=== PATIENT | female | born 1990 | race Caucasian/White ===

== ENCOUNTER 2020-12-20 12:58 | Emergency (ER) | payer OTHER ==
[~2020-12-20] VITALS: Ht 160 cm; Wt 75.0 kg
[2020-12-20] MEDS ORDERED: ondansetron 4mg rapidly disintigrating tab PO ONE (13:55)
[2020-12-20] MEDS ORDERED: ketorolac tromethamine 15mg/ml inj. IM ONE ×2 (13:55→14:41)
[2020-12-20 14:29] LABS: CLARITY,URINE CLOUDY (Clear); COLOR,URINE YELLOW (Yellow); GLUCOSE, URINE NEGATIVE (Neg); KETONES,URINE NEGATIVE (Neg); NITRITES, URINE POSITIVE (Neg); OCCULT BLOOD,URINE LARGE (Neg); PROTEIN,URINE 100 mg/dl (Neg); UA COLLECTION TYPE CLN CATCH MIDSTREAM
[2020-12-20 14:30] LABS: LEUKOCYTE ESTERASE ,URINE MODERATE (Neg); UROBILINOGEN,URINE >=8.0 E.U/dL (0.2-1.0)
[2020-12-20 14:43] LABS: BACTERIA,URINE 3+ /HPF (Neg); MUCUS STRANDS FEW /LPF (Neg); SQUAMOUS EPITHELIAL CELL,UR FEW /LPF (FEW); WBC,URINE TNTC /HPF (0-4)
[2020-12-20 15:46] LABS: BASOPHILS % (AUTO) 0 % (0-1); EOSINOPHILS % (AUTO) 0.1 % (0-6); HEMATOCRIT 31.4 % (35.0-45.0); HEMOGLOBIN 10.3 g/dl (12.0-16.0); LYMPHOCYTES % (AUTO) 3.5 % (21-51); MEAN CORPUSCULAR HEMOGLOBIN 28.5 PG (27.0-31.0); MEAN CORPUSCULAR HGB CONC 32.8 g/dL (33.0-36.5); MEAN CORPUSCULAR VOLUME 86.9 FL (78-98); MEAN PLATELET VOLUME 7.6 FL (7.4-10.4); MONOCYTES # (AUTO) 2.9 X10'3 (0-0.9); MONOCYTES % (AUTO) 10.9 % (2-12); NEUTROPHILS # (AUTO) 23.2 X10'3 (1.8-7.7); NEUTROPHILS % (AUTO) 85.5 % (42-75); PLATELET COUNT 326 X10'3 (140-440); RED BLOOD COUNT 3.62 X10'6 (4.20-5.60); RED CELL DISTRIBUTION WIDTH 14.1 % (11.5-14.5)
[2020-12-20 15:51] LABS: WHITE BLOOD COUNT 27.1 X10'3 (4.5-11.0)
[2020-12-20] MEDS ORDERED: normal saline 1000ML IV soln IV ONE (15:55)
[2020-12-20] MEDS ORDERED: gentamicin 40 MG/1 ML inj IV SCH (15:55)
[2020-12-20 16:05] LABS: ALANINE AMINOTRANSFERASE 13 U/L (12-78); ALBUMIN 2.6 G/DL (3.4-5.0); ALBUMIN/GLOBULIN RATIO 0.5 (1.1-1.5); ALKALINE PHOSPHATASE 111 IU/L (46-116); ANION GAP 13 (8-16); ASPARTATE AMINO TRANSFERASE 15 U/L (10-37); BILIRUBIN,TOTAL 0.8 MG/DL (0.1-1.0); BLOOD UREA NITROGEN 16 MG/DL (7-18); BUN/CREATININE RATIO 17.8 (6.6-38.0); CALCIUM 8.6 MG/DL (8.5-10.1); CHLORIDE 97 MMOL/L (99-107); GLUCOSE 108 MG/DL (70-104); MAGNESIUM 2.2 MG/DL (1.5-2.4); POTASSIUM 3.3 MMOL/L (3.5-5.1); SODIUM 134 MMOL/L (135-145); TOTAL CARBON DIOXIDE 23.7 MMOL/L (24-32); TOTAL PROTEIN 7.9 G/DL (6.4-8.2); eGFR 75 ML/MIN
[2020-12-20] MEDS ORDERED: morphine 4 MG/ML inj SYRINge IV ONE (16:15)
[2020-12-20 16:45] LABS: PLATELET ESTIMATE NORMAL; TOTAL CELLS COUNTED 100
[2020-12-20] MEDS ORDERED: gentamicin inj 310 MG in normal saline 100ml IV soln 92.25 ML IV ONE (16:45)
[2020-12-20 17:07] LABS: URINE HCG NEGATIVE (NEG)
[2020-12-20 17:39] VITALS: BP 105/67
[2020-12-20] MEDS ORDERED: proCHLORperazine 10 MG/2 ml inj IV ONE (18:15)
[2020-12-20] MEDS ORDERED: SULF1TAB45 PO (18:21)
[2020-12-20] MEDS ORDERED: ONDA4TAB12 PO (18:28)
[2020-12-20] MEDS ORDERED: HYDROcodone/acetaminophen 5mg/325mg tablet PO ONE (19:00)
== END 2020-12-20 19:55 | disposition home or self-care (01) ==
LOC: ER 12:59
DX: N12 Tubulo-interstitial nephritis, not specified as acute or chronic (principal); Z20.822 Contact with and (suspected) exposure to COVID-19; R11.2 Nausea with vomiting, unspecified; F12.90 Cannabis use, unspecified, uncomplicated; Z88.0 Allergy status to penicillin; Z79.899 Other long term (current) drug therapy
CPT/HCPCS: 36415; 74176; 80053; 81001; 81025; 83605; 83735; 84145; 85007; 85025; 87040; 87077; 87088; 87186; 87635; 96361; 96365; 96372; 96375; 99285; C9803; J0780; J1580; J1885; J2270; J7030; 99284